=== PATIENT | male | born 1990 | race African-American/Black ===

== ENCOUNTER 2020-07-17 13:56 | Emergency (ER) | payer BC ==
[2020-07-17 15:42] LABS: Protime INR 1.01
[2020-07-17 15:44] LABS: Absolute Lymphocytes (CBC) 3.3 K/uL (0.7-4.9); Basophils % 0.6 % (0-1.3); Lymphocytes % 30.5 % (15.3-44.8); RBC Red Blood Cell Count 4.83 M/uL (4.33-5.43)
[2020-07-17] MEDS ORDERED: HYDRALAZINE HCL 20 MG/ML VIAL ONE (15:59)
[2020-07-17 16:14] LABS: ALT/SGPT 73 U/L (12-78); AST/SGOT 40 U/L (15-37); Albumin 4.1 g/dL (3.4-5.0); Alkaline Phosphatase 90 U/L (45-117); BUN Blood Urea Nitrogen 11 mg/dL (7-18); Bicarbonate 28 mmol/L (21-32); Bilirubin Direct 0.1 mg/dL (0-0.2); Bilirubin Total 0.4 mg/dL (0.2-1.0); Glucose Level 82 mg/dL (74-106); Magnesium 1.9 mg/dL (1.8-2.4); NT PRO-BNP 7 pg/mL (<125); Potassium 3.8 mmol/L (3.5-5.1); Protein, Total 7.6 g/dL (6.4-8.2); Sodium Level 143 mmol/L (136-145); Troponin (Emerg Dept Use Only) < 0.02 ng/mL (0.0-0.045)
--- NOTE | 2020-07-17 16:25 | EDPHYS ---
Physician Documentation [facility] – [place], [place] Name: Andrade El Age: 30 yrs Sex: Male : 1990 Arrival Date: 07/17/2020 Time: 14:00 Bed 26 Private MD: ED Physician Lance Vargas HPI: 07/17 15:04 This 30 yrs old Black Male presents to ER via Ambulatory with complaints of Chest Pain. jr8 15:04 Pt presents to ED c/o intermittent CP for the past month. The pt states that he has not jr8 had chest pain today, and last felt the pain yesterday. He describes the severity of the pain as ranging from a 3 to a 7, and figured that he should get it checked out. Pain is non-radiating, located on the L side of the chest, and is described as "sharp". States that his PCP has been monitoring his BP over the past year, but denies being on any medications. Denies SOB, fever, N/V/D, or any other symptoms.. Historical: - Allergies: 14:19 No Known Allergies; ca1 - Home Meds: 14:19 None [Active]; ca1 - PMHx: 14:19 None; ca1 - PSHx: 14:19 None; ca1 - Immunization history:: Adult Immunizations up to date. - Social history:: Smoking status: Patient denies any tobacco usage or history of. ROS: 16:23 Eyes: Negative for injury, pain, redness, and discharge, ENT: Negative for injury, jr8 pain, and discharge, Neck: Negative for injury, pain, and swelling, Respiratory: Negative for shortness of breath, cough, wheezing, and pleuritic chest pain, Abdomen/GI: Negative for abdominal pain, nausea, vomiting, diarrhea, and constipation, Back: Negative for injury and pain, MS/Extremity: Negative for injury and deformity, Skin: Negative for injury, rash, and discoloration, Neuro: Negative for headache, weakness, numbness, tingling, and seizure. 16:23 Cardiovascular: Positive for chest pain, Negative for edema, orthopnea, palpitations, paroxysmal nocturnal dyspnea. Exam: 16:23 Eyes: Pupils equal round and reactive to light, extra-ocular motions intact. Lids and jr8 lashes normal. Conjunctiva and sclera are non-icteric and not injected. Cornea within normal limits. Periorbital areas with no swelling, redness, or edema. ENT: Nares patent. No nasal discharge, no septal abnormalities noted. Tympanic membranes are normal and external auditory canals are clear. Oropharynx with no redness, swelling, or masses, exudates, or evidence of obstruction, uvula midline. Mucous membranes moist. Neck: Trachea midline, no thyromegaly or masses palpated, and no cervical lymphadenopathy. Supple, full range of motion without nuchal rigidity, or vertebral point tenderness. No Meningismus. Cardiovascular: Regular rate and rhythm with a normal S1 and S2. No gallops, murmurs, or rubs. Normal PMI, no JVD. No pulse deficits. Respiratory: Lungs have equal breath sounds bilaterally, clear to auscultation and percussion. No rales, rhonchi or wheezes noted. No increased work of breathing, no retractions or nasal flaring. Abdomen/GI: Soft, non-tender, with normal bowel sounds. No distension or tympany. No guarding or rebound. No evidence of tenderness throughout. Back: No spinal tenderness. No costovertebral tenderness. Full range of motion. Skin: Warm, dry with normal turgor. Normal color with no rashes, no lesions, and no evidence of cellulitis. MS/ Extremity: Pulses equal, no cyanosis. Neurovascular intact. Full, normal range of motion. Neuro: Awake and alert, GCS 15, oriented to person, place, time, and situation. Cranial nerves II-XII grossly intact. Motor strength 5/5 in all extremities. Sensory grossly intact. Cerebellar exam normal. Normal gait. Vital Signs: 14:16 BP 209 / 117; Pulse 86; Resp 16 S; Temp 97.9(TE); Pulse Ox 98% on R/A; Weight 148.32 ca1 kg; Height 6 ft. 1 in. (185.42 cm) (R); 15:30 BP 173 / 125; Pulse 87; Resp 19; Pulse Ox 99% ; Pain 0/10; jl7 16:17 BP 165 / 118; Pulse 96; Resp 19; Pulse Ox 100% ; jl7 16:55 BP 171 / 116; Pulse 89; Resp 17 S; Pulse Ox 100% on R/A; jl7 14:16 Body Mass Index 43.14 (148.32 kg, 185.42 cm) ca1 16:55 ERP aware jl7 MDM: 14:32 Patient medically screened. jr8 16:23 Data reviewed: vital signs, nurses notes, lab test result(s), EKG, radiologic studies, jr8 plain films. Data interpreted: Pulse oximetry: on room air is 100 %. Interpretation: normal. Counseling: I had a detailed discussion with the patient and/or guardian regarding: the historical points, exam findings, and any diagnostic results supporting the discharge/admit diagnosis, lab results, radiology results, the need for outpatient follow up, a family practitioner, to return to the emergency department if symptoms worsen or persist or if there are any questions or concerns that arise at home. ED course: No chest pain at this time. BP decreasing. Will start on medication and will have him f/u with PCP . 07/17 14:32 Order name: Basic Metabolic Panel; Complete Time: 16:17 07/17 14:32 Order name: CBC with Diff; Complete Time: 16:22 07/17 14:32 Order name: LFT's; Complete Time: 16:07/17 14:32 Order name: Magnesium; Complete Time: 16:17 07/17 14:32 Order name: NT PRO-BNP; Complete Time: 16:17 07/17 14:32 Order name: PT-INR; Complete Time: 15:44 07/17 14:29 Order name: EKG; Complete Time: 14:30 [facility] 07/17 14:29 Order name: EKG - Nurse/Tech; Complete Time: 14:29 [facility] 07/17 14:32 Order name: Troponin (emerg Dept Use Only); Complete Time: 16:17 07/17 14:32 Order name: XRAY Chest (1 view) 07/17 14:32 Order name: Cardiac monitoring; Complete Time: 15:29 07/17 14:32 Order name: IV Saline Lock; Complete Time: 15:29 07/17 14:32 Order name: ESR; Complete Time: 16:22 07/17 14:32 Order name: Labs collected and sent; Complete Time: 15:29 07/17 14:32 Order name: O2 Per Protocol; Complete Time: 15:29 07/17 14:32 Order name: O2 Sat Monitoring; Complete Time: 15:29 jr8 Administered Medications: 15:50 Drug: hydrALAZINE 10 mg Route: IV; Rate: calculated rate; Site: right hand; [facility] 16:00 Follow up: Response: Blood pressure is unchanged; IV Status: Completed infusion jl7 Disposition: 17:51 Co-signature as Attending Physician, Lance Vargas MD. rn Disposition: 07/17/20 16:24 Discharged to Home. Impression: Chest pain, unspecified, Essential (primary) hypertension. - Condition is Stable. - Discharge Instructions: Nonspecific Chest Pain, Hypertension. - Prescriptions for amlodipine 5 mg Oral tablet - take 1 tablet by ORAL route once daily; 30 tablet. Hydrochlorothiazide 25 mg Oral Tablet - take 1 tablet by ORAL route once daily .; 30 tablet. - Work release form, Medication Reconciliation Form, Thank You Letter, Antibiotic Education, Prescription Opioid Use form. - Follow up: Private Physician; When: 2 - 3 days; Reason: Recheck today's complaints, Continuance of care, Re-evaluation by your physician. - Problem is new. - Symptoms have improved. Signatures: Dispatcher [employer] EDMS Lance Vargas MD MD rn Roszak, Josh, PA PA jr8 Casper Ordaz RN RN jl7 Siri Martinez RN RN ca1 Corrections: (The following items were deleted from the chart) 16:56 16:24 07/17/2020 16:24 Discharged to Home. Impression: Chest pain, unspecified; jl7 Essential (primary) hypertension. Condition is Stable. Forms are Medication Reconciliation Form, Thank You Letter, Antibiotic Education, Prescription Opioid Use. Follow up: Private Physician; When: 2 - 3 days; Reason: Recheck today's complaints, Continuance of care, Re-evaluation by your physician. Problem is new. Symptoms have improved. jr8
--- NOTE | 2020-07-17 16:25 | ER ---
Nurse's Notes [facility] Name: Andrade El Age: 30 yrs Sex: Male : 1990 Arrival Date: 07/17/2020 Time: 14:00 Bed 26 Private MD: Diagnosis: Chest pain, unspecified;Essential (primary) hypertension Presentation: 07/17 14:16 Chief complaint: Patient states: Chest pains, on and off, sharp for the past couple of ca1 months. But for the past few days, it has been happening at least once a day, and the duration has increased. Denies cough, SOB, injury to chest. Coronavirus screen: Client denies travel out of the [place] in the last 14 days. At this time, the client does not indicate any symptoms associated with coronavirus-19. Ebola Screen: Patient negative for fever greater than or equal to 101.5 degrees Fahrenheit, and additional compatible Ebola Virus Disease symptoms Patient denies exposure to infectious person. Patient denies travel to an Ebola-affected area in the 21 days before illness onset. No symptoms or risks identified at this time. Initial Sepsis Screen: Does the patient meet any 2 criteria? No. Patient's initial sepsis screen is negative. Does the patient have a suspected source of infection? No. Patient's initial sepsis screen is negative. Risk Assessment: Do you want to hurt yourself or someone else? Patient reports no desire to harm self or others. Onset of symptoms was July 17, 2020. 14:16 Method Of Arrival: Ambulatory ca1 14:16 Acuity: ANDREW 3 ca1 Historical: - Allergies: 14:19 No Known Allergies; ca1 - Home Meds: 14:19 None [Active]; ca1 - PMHx: 14:19 None; ca1 - PSHx: 14:19 None; ca1 - Immunization history:: Adult Immunizations up to date. - Social history:: Smoking status: Patient denies any tobacco usage or history of. Screenin:30 Abuse screen: Denies threats or abuse. Denies injuries from another. Nutritional jl7 screening: No deficits noted. Tuberculosis screening: No symptoms or risk factors identified. Fall Risk IV access (20 points). Total Mckeon Fall Scale indicates No Risk (0-24 pts). Assessment: 14:45 General: Appears in no apparent distress. uncomfortable, Behavior is calm, cooperative, jl7 appropriate for age. Pain: Complains of pain in anterior aspect of left upper chest Pain does not radiate. Pain currently is 0 out of 10 on a pain scale. at worst was 8 out of 10 on a pain scale. Quality of pain is described as sharp, Pain began 2-3 days ago. Is intermittent. Neuro: Level of Consciousness is awake, alert, obeys commands, Oriented to person, place, time, situation. Cardiovascular: Patient's skin is warm and dry. Rhythm is regular. Respiratory: Airway is patent Respiratory effort is even, unlabored, Respiratory pattern is regular, symmetrical. GI: No signs and/or symptoms were reported involving the gastrointestinal system. : No signs and/or symptoms were reported regarding the genitourinary system. Derm: Skin is pink, warm \T\ dry. 16:00 Reassessment: Patient appears in no apparent distress at this time. No changes from jl7 previously documented assessment. Patient and/or family updated on plan of care and expected duration. Pain level reassessed. Patient is alert, oriented x 3, equal unlabored respirations, skin warm/dry/pink. Vital Signs: 14:16 BP 209 / 117; Pulse 86; Resp 16 S; Temp 97.9(TE); Pulse Ox 98% on R/A; Weight 148.32 ca1 kg; Height 6 ft. 1 in. (185.42 cm) (R); 15:30 BP 173 / 125; Pulse 87; Resp 19; Pulse Ox 99% ; Pain 0/10; jl7 16:17 BP 165 / 118; Pulse 96; Resp 19; Pulse Ox 100% ; jl7 16:55 BP 171 / 116; Pulse 89; Resp 17 S; Pulse Ox 100% on R/A; jl7 14:16 Body Mass Index 43.14 (148.32 kg, 185.42 cm) ca1 16:55 ERP aware jl7 ED Course: 14:00 Patient arrived in ED. as 14:18 Triage completed. ca1 14:19 Arm band placed on right wrist. ca1 14:31 Bishop Burgos PA is PHCP. jr8 14:32 Lance Vargas MD is Attending Physician. jr8 15:15 Casper Ordaz RN is Primary Nurse. jl7 15:30 Patient has correct armband on for positive identification. Placed in gown. Bed in low jl7 position. Call light in reach. Side rails up X 1. threat monitoring analyst on. Pulse ox on. NIBP on. 15:30 Initial lab(s) drawn, by me, sent to lab. Inserted saline lock: 20 gauge in right hand, jl7 using aseptic technique. Blood collected. Patient maintains SpO2 saturation greater than 95% on room air. 16:11 XRAY Chest (1 view) In Process Unspecified. EDMS 16:55 No provider procedures requiring assistance completed. IV discontinued, intact, jl7 bleeding controlled, No redness/swelling at site. Pressure dressing applied. Administered Medications: 15:50 Drug: hydrALAZINE 10 mg Route: IV; Rate: calculated rate; Site: right hand; jl7 16:00 Follow up: Response: Blood pressure is unchanged; IV Status: Completed infusion jl7 Outcome: 16:24 Discharge ordered by . jrDedra 16:55 Discharged to home ambulatory. jl7 16:55 Condition: stable 16:55 Discharge instructions given to patient, Instructed on discharge instructions, follow up and referral plans. medication usage, Demonstrated understanding of instructions, follow-up care, medications, Prescriptions given X 2. 16:56 Patient left the ED. jl7 Signatures: Dispatcher [employer] EDMS Denise Manzano Josh, PA PA jr8 Casper Ordaz RN RN jl7 Siri Martinez, RN RN ca1 Corrections: (The following items were deleted from the chart) 14:23 14:16 Pulse 86bpm; Resp 16bpm; Spontaneous; Pulse Ox 98% RA; Temp 97.9F Temporal; ca1 148.32 kg; Height 6 ft. 1 in. Reported; BMI: 43.1; ca1
--- NOTE | 2020-07-17 17:04 | RAD REPORT ---
EXAM DESCRIPTION: RAD - Chest Single View - 07/17/2020 4:11 pm CLINICAL HISTORY: CHEST PAIN COMPARISON: Two view chest September 2014 TECHNIQUE: AP portable chest image was obtained 07/17/2020 4:11 pm . FINDINGS: Lung volumes are comparatively low. No peripheral mass or consolidation. No significant fa ilure or volume overload. Heart, vasculature and lung markings are all accentuated by portable techni que, shallow inspiration and body habitus affects. Heart and vasculature are normal. No measurable pl eural effusion and no pneumothorax. No acute bony abnormality seen. No acute aortic findings suspecte d. IMPRESSION: Limited portable study without acute cardiopulmonary finding.
[2020-07-17 17:07] VITALS: TEMP 97.9
[2020-07-17 17:09] VITALS: O2SAT 100
[2020-07-17 17:10] VITALS: BP 171/116
--- NOTE | 2020-07-18 11:23 | EKG ---
Test Date: 2020-07-17 Test Time: 14:22:09 Machine Puller And Laster: BLAYNE MEASUREMENT RESULTS: Intervals: Rate: 90 AL: 150 QRSD: 94 QT: 364 QTc: 445 Pierce: P: 70 AL: 150 QRS: 68 T: -11 INTERPRETIVE STATEMENTS: Normal sinus rhythm Incomplete right bundle branch block ST elevation, consider early repolarization, pericarditis, or injury T wave abnormality, consider inferior ischemia Abnormal ECG No previous ECG available for comparison Electronically Signed On 07-18-20 11:20:27 CDT by Sean An
== END 2020-07-17 16:56 | disposition home or self-care (01) ==
LOC: ER 13:56
DX: I10 Essential (primary) hypertension (principal)
CPT/HCPCS: 93005; 85025; 80048; 36415; 83735; 85610; 80076; 85652; 84484; 83880; 71045; 96374; 99285; J0360